=== PATIENT | female | born 1930 | race Caucasian/White ===

== ENCOUNTER 2018-11-04 13:29 | Inpatient (IN) | payer MEDICARE ==
[2018-11-04 14:28] LABS: #Lymphocytes 0.3 thou/uL (1.20-3.40); #Monocytes 0.6 thou/uL (0.11-0.59); #Neutrophils 10.6 thou/uL (1.40-6.50); %Basophils 0.4 % (0.0-1.0); %Eosinophils 0.2 % (0.0-10.0); %Lymphocytes 2.9 % (21.0-51.0); %Monocytes 5.2 % (0.0-10.0); %Neutrophils 91.3 % (42.0-75.0); Hemoglobin 15.8 g/dL (12.0-16.0); Mean Corpuscular HGB CONC 32.4 g/dL (32.0-36.0); Mean Corpuscular Hemoglobin 28.8 pg (27.0-31.0); Mean Corpuscular Volume 88.9 fL (78.0-98.0); Mean Platelet Volume 8.1 fL (7.4-10.4); Platelet Count 212 thou/uL (130-400); RBC Distribution Width 12.7 % (11.5-14.5); Red Blood Cell (RBC) Count 5.46 mill/uL (4.20-5.40); White Blood Cell (WBC) Count 11.6 thou/uL (4.8-10.8)
[2018-11-04 14:50] LABS: ALT (SGPT) 12 U/L (8-55); AST (SGOT) 18 U/L (5-34); Albumin 4.1 g/dL (3.4-4.8); Alkaline Phosphatase 107 U/L (40-150); Anion Gap 15 mmol/L (10-20); BUN (Urea Nitrogen) 12 mg/dL (9.8-20.1); Bilirubin, Total 0.8 mg/dL (0.2-1.2); Calc. Creatinine Clearance 0 mL/min (70-130); Calcium 8.8 mg/dL (7.8-10.44); Carbon Dioxide 23 mmol/L (23-31); Chloride 105 mmol/L (98-107); Estimated GFR-MDRD 66; Globulin 3.4 g/dL (2.4-3.5); Glucose 128 mg/dL (83-110); Potassium 3.8 mmol/L (3.5-5.1); Protein, Total 7.5 g/dL (6.0-8.3); Sodium 139 mmol/L (136-145)
[2018-11-04 15:08] LABS: Bilirubin Negative (Negative); Blood, Urine Negative (Negative); Clarity Clear (Clear); Glucose, Urine (Dipstick) Normal (Negative); Leukocyte Negative Leu/uL (Negative); Nitrite Negative (Negative); Protein, Urine (Dipstick) Negative (Neg-Trace); Urobilinogen Normal mg/dL (Less than 2)
[2018-11-04] MEDS ORDERED: Acetaminophen 500 MG TAB ONE (18:01)
[2018-11-04 18:17] LABS: Lactic Acid 2.2 mmol/L (0.5-2.2)
--- NOTE | 2018-11-04 18:52 | PDOC.FPRHP ---
- History of Present Illness Chief Complaint: Diarrhea History of Present Illness: The patient is a pleasant 88 y/o female with a history of HTN and HLD who presents to the ED with her daughter following two episodes of non-bloody diarrhea earlier this morning. The patient believes that her current state is a result of some clam chowder that she had at [facility] several days prior. She denies sick contacts, recent travel, recent hospitalizations, and recent antibiotic usage. She also denies any worrisome symptoms such as syncope , traumatic falls, chest pain, cough, shortness of breath, N/V, abdominal pain, fever and chills. ED Course: The patient was given a 2L bolus of NS and Meropenem 2 g. - Allergies/Adverse Reactions Allergies Allergy/AdvReac Type Severity Reaction Status Date / Time codeine Allergy Verified 11/04/18 20:05 Sulfa (Sulfonamide Allergy Verified 11/04/18 20:05 Antibiotics) - Home Medications Medication Instructions Recorded Confirmed Type Aspirin [Adult Aspirin Regimen] 1 tab PO DAILY 11/04/18 11/04/18 History Calcium Carb/Vitamin D3/Vit K1 1 each PO BID 11/04/18 11/04/18 History [Viactiv 650 mg-12.5 Mcg Chew] Lisinopril [Zestril] 1 tab PO BID 11/04/18 11/04/18 History Metoprolol Tartrate 0.5 tab PO DAILY 11/04/18 11/04/18 History Mirtazapine [Remeron] 15 mg PO HS 11/04/18 11/04/18 History amLODIPine Besylate [Norvasc] 1 tab PO HS 11/04/18 11/04/18 History traZODone HCl [Trazodone HCl] 0.5 tab PO HS 11/04/18 11/04/18 History - History PMHx: HTN, HLD, Anxiety / Depression PSHx: None FHx: Did Not Obtain Social: Denies x3. The patient lives alone at [facility]. - Review of Systems General: denies: fever/chills, weight/appetite/sleep changes, fatigue Eyes: denies: vision changes ENT: denies: rhinorrhea Respiratory: denies: cough, shortness of breath Cardiovascular: denies: chest pain Gastrointestinal: reports: diarrhea. denies: nausea, vomiting, abdominal pain, GI bleeding Genitourinary: reports: discharge (The patient was told by her OBGYN her pessary can cause benign vaginal discharge from time to time.). denies: dysuria Skin: denies: rashes, lesions, jaundice Neurological: denies: syncope, weakness Psychological: reports: anxiety, depression - Vital signs BP: [164/102] HR: [111] RR: [17] Tmax: [100.6 - Rectal] Pox: [94]% on [Room] Wt: [58 kg] - Physical Exam Constitutional: NAD, awake, alert and oriented, well developed HEENT: normocephalic and atraumatic, conjunctiva clear, no scleral icterus, grossly normal vision, grossly normal hearing, good dention Neck: supple, FROM, no LAD, no JVD Chest: no-tender to palpation, no lesions Heart: RRR, normal S1/S2, no murmurs/rubs/gallops, pulses present, no edema Lungs: CTAB, no respiratory distress, good air movement, no rales/rhonchi, no wheezing, no retractions Abdomen: soft, non-tender, bowel sounds present, no masses/distention Musculoskeletal: normal structure, normal tone, ROM grossly normal Neurological: no focal deficit Skin: no rash/lesions -Skin: Cap Refill > 2 Seconds Heme/Lymphatic: no unusual bruising or bleeding, no petechia, no LAD Psychiatric: normal mood and affect, good judgment and insight, intact recent and remote memory FMR H&P: Results - Labs Result Diagrams: 11/04/18 14:18 11/04/18 14:18 Lab results: WBC 11.6 thou/uL (4.8-10.8) H 11/04/18 14:18 Hgb 15.8 g/dL (12.0-16.0) 11/04/18 14:18 Hct 48.6 % (36.0-47.0) H 11/04/18 14:18 MCV 88.9 fL (78.0-98.0) 11/04/18 14:18 Plt Count 212 thou/uL (130-400) 11/04/18 14:18 Neutrophils % 91.3 % (42.0-75.0) H 11/04/18 14:18 Sodium 139 mmol/L (136-145) 11/04/18 14:18 Potassium 3.8 mmol/L (3.5-5.1) 11/04/18 14:18 Chloride 105 mmol/L (98-107) 11/04/18 14:18 Carbon Dioxide 23 mmol/L (23-31) 11/04/18 14:18 BUN 12 mg/dL (9.8-20.1) 11/04/18 14:18 Creatinine 0.82 mg/dL (0.6-1.1) 11/04/18 14:18 Glucose 128 mg/dL (83-110) H 11/04/18 14:18 Lactic Acid 2.2 mmol/L (0.5-2.2) 11/04/18 17:53 Calcium 8.8 mg/dL (7.8-10.44) 11/04/18 14:18 Total Bilirubin 0.8 mg/dL (0.2-1.2) 11/04/18 14:18 AST 18 U/L (5-34) 11/04/18 14:18 ALT 12 U/L (8-55) 11/04/18 14:18 Alkaline Phosphatase 107 U/L (40-150) 11/04/18 14:18 Serum Total Protein 7.5 g/dL (6.0-8.3) 11/04/18 14:18 Albumin 4.1 g/dL (3.4-4.8) 11/04/18 14:18 Urine Ketones Negative mg/dL (Negative) 11/04/18 14:47 Urine Blood Negative (Negative) 11/04/18 14:47 Urine Nitrite Negative (Negative) 11/04/18 14:47 Ur Leukocyte Esterase Negative Diana/uL (Negative) 11/04/18 14:47 - EKG Interpretation EKG: Sinus Tachycardia FMR H&P: A/P - Problem List (1) Diarrhea with dehydration Current Visit: Yes Status: Acute Code(s): R19.7 - DIARRHEA, UNSPECIFIED (2) HTN (hypertension) Current Visit: Yes Status: Acute Code(s): I10 - ESSENTIAL (PRIMARY) HYPERTENSION (3) Hyperlipemia Current Visit: Yes Status: Acute Code(s): E78.5 - HYPERLIPIDEMIA, UNSPECIFIED - Plan 1. Diarrhea with Dehydration -Patient admitted to 2 episodes of water diarrhea with decreased PO intake -shelter resident (Jannette) -Dry mucous membranes and delayed capillary refill on PE -Lactic Acid: 2.2 (H) -Stool Studies: Pending -No recent hospitalizations or antibiotic use - C. diff. infection unlikely -Benign HPI and PE likely indicate viral enteritis -2L NS bolus and Meropenem 2 g administered in ED -Continue fluid resuscitation and monitor vital signs and electrolytes -Diet: Clear Liquids -Activity: Ad Annel 2. HTN -Patient is unsure of baseline BP, measured 164/102 in ED -Continue home medication regimen 3. HLD -Continue home medication regimen Dispo: Admit to Medical Floor for observation. Continue fluid resuscitation while monitoring vital signs and electrolytes. Clear liquid diet. Patient will likely DC in AM if symptoms resolve. FMR H&P: Upper Level - Pertinent history Pleasant 88 yo female presents for evaluation of acute onset diarrhea for one day. She reports multiple episodes of diarrhea and limited to no PO intake. She denies bloody stools, vomiting, lightheadedness, or other acute complaints. Please see advertising intern note above for further information. Physical Exam: General: Female appears stated age. NAD. HEENT: Dry mucous membranes. CV: tachycardic rate, regular rhythm, no murmurs Respiratory: CTA, no wheezing Extremities: no edema present. Moves all four equally. Abdomen: Soft-non tender, normoactive BS. Psych: A&O x3 Neuro: No focal deficits - Plan Date/Time: 11/04/18 114 I, Alexandro So MD, have evaluated this patient and agree with findings/ plan as outlined by advertising intern resident. Pertinent changes/additions are listed here. Enteritis - Strong suspicion for viral infection - IVF - Will hold on any further antibiotics - Stool cultures ordered in ED - Clear liquid diet and advance as tolerated Dehydration - IVF as above - Will give additional 500 ml bolus - s/p 1L Bolus in ED HTN - Continue home meds HLD - Continue home meds PCP: Dr. CRYSTAL FREITAS CODE STATUS: FULL CODE Disposition: Stable, will admit for observation overnight
[2018-11-04] MEDS ORDERED: Enoxaparin Sodium 40 MG/0.4 ML SYRINGE SC SCH (19:57)
[2018-11-04] MEDS ORDERED: Loperamide HCl 2 MG CAP PO PRN (19:57)
[2018-11-04] MEDS: Sodium Chloride 0.9% 1,000 ML IV SCH (20:15)
[2018-11-04 20:22] VITALS: BMI 27.3
[2018-11-04 20:36] LABS: #Basophils 0.1 thou/uL (0.0-0.2); #Lymphocytes 0.4 thou/uL (1.20-3.40); #Monocytes 0.5 thou/uL (0.11-0.59); #Neutrophils 8.4 thou/uL (1.40-6.50); %Basophils 0.6 % (0.0-1.0); %Eosinophils 0.2 % (0.0-10.0); %Lymphocytes 4.2 % (21.0-51.0); %Monocytes 4.9 % (0.0-10.0); %Neutrophils 90.2 % (42.0-75.0); Hemoglobin 14.9 g/dL (12.0-16.0); Mean Corpuscular HGB CONC 32.9 g/dL (32.0-36.0); Mean Corpuscular Hemoglobin 29.5 pg (27.0-31.0); Mean Corpuscular Volume 89.9 fL (78.0-98.0); Platelet Count 216 thou/uL (130-400); RBC Distribution Width 12.8 % (11.5-14.5); Red Blood Cell (RBC) Count 5.05 mill/uL (4.20-5.40); White Blood Cell (WBC) Count 9.4 thou/uL (4.8-10.8)
[2018-11-04 20:49] LABS: Anion Gap 13 mmol/L (10-20); BUN (Urea Nitrogen) 8 mg/dL (9.8-20.1); Calc. Creatinine Clearance 51 mL/min (70-130); Calcium 8.1 mg/dL (7.8-10.44); Carbon Dioxide 19 mmol/L (23-31); Chloride 110 mmol/L (98-107); Estimated GFR-MDRD 80; Glucose 134 mg/dL (83-110); Potassium 3.4 mmol/L (3.5-5.1); Sodium 139 mmol/L (136-145)
[2018-11-04] MEDS: traZODone HCl 50 MG TAB PO SCH (21:00)
[2018-11-04] MEDS ORDERED: Amlodipine 5 MG TAB PO SCH (21:00)
[2018-11-04] MEDS: Lisinopril 10 MG TAB PO SCH (21:01)
[2018-11-04] MEDS: Mirtazapine 15 MG TAB PO SCH (21:01)
[2018-11-04] MEDS ORDERED: Acetaminophen 325 MG TAB PO PRN (23:05)
[2018-11-05] MEDS: Sodium Chloride 0.9% 1,000 ML IV SCH ×3 (04:35→22:45)
--- NOTE | 2018-11-05 05:15 | PDOC.FM ---
- Subjective Subjective: 4 BM overnight. They were watery and loose. She has some nausea, but no vomiting. - Objective MAR Reviewed: Yes Vital Signs & Weight: Vital Signs (12 hours) Temp Pulse Resp BP BP Pulse Ox 11/05/18 00:00 98.5 F 90 18 136/79 91 L 11/04/18 21:06 98 F 106 H 18 160/92 H 95 11/04/18 21:01 171/90 H 11/04/18 21:00 112 H 171/90 H 11/04/18 20:20 97.5 F L 112 H 18 171/89 H 94 L 11/04/18 20:00 98 F 108 H 18 160/92 H 95 Weight Weight 57.289 kg I&O: 11/03/18 11/04/18 11/05/18 06:59 06:59 06:59 Intake Total 980 Balance 980 Result Diagrams: 11/05/18 05:24 11/05/18 05:24 Phys Exam - Physical Examination Constitutional: NAD HEENT: PERRLA dry mucus membranes Neck: supple Respiratory: clear to auscultation bilateral Cardiovascular: RRR, no significant murmur, no rub Gastrointestinal: soft, non-tender, positive bowel sounds distended Musculoskeletal: no edema Neurological: non-focal, moves all 4 limbs Lymphatic: no nodes Psychiatric: normal affect Skin: no rash, cap refill <2 seconds Dx/Plan (1) Diarrhea with dehydration Code(s): R19.7 - DIARRHEA, UNSPECIFIED Status: Acute (2) HTN (hypertension) Code(s): I10 - ESSENTIAL (PRIMARY) HYPERTENSION Status: Chronic (3) Hyperlipemia Code(s): E78.5 - HYPERLIPIDEMIA, UNSPECIFIED Status: Chronic 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 Diarrhea with Dehydration -Patient admitted to 2 episodes of water diarrhea with decreased PO intake. Dry mucous membranes and delayed capillary refill on PE -snf resident (Jannette) -Lactic Acid: 2.2 (H) -Stool Studies: Negative except Lactoferrin -No recent hospitalizations or antibiotic use - C. diff. infection unlikely -Benign HPI and PE likely indicate viral enteritis -2L NS bolus and Meropenem 2 g administered in ED -Continue fluid resuscitation and monitor vital signs and electrolytes -4 Water BM this morning. Nausea without vomiting. -Zofran started 2. Hypokalemia -2.9 this am. Being replaced currently, will recheck later. 3. HTN -Patient is unsure of baseline BP, measured 164/102 in ED -Continue home medications: Amlo 2.5, ASA 81, Lisinopril 10 BID, Metoprolol 12.5 -Increased amlo to BID due to elevated BP 4. HLD -Currently not taking medication. Code Status: Full Lines: Peripheral Diet: Regular Activity: Ad Annel Dispo: Will watch overnight for resolving diarrhea and continue fluids to prevent dehydration.
[2018-11-05 06:01] LABS: #Lymphocytes 0.5 thou/uL (1.20-3.40); #Monocytes 0.5 thou/uL (0.11-0.59); %Eosinophils 0.4 % (0.0-10.0); %Lymphocytes 6.6 % (21.0-51.0); %Monocytes 7.3 % (0.0-10.0); %Neutrophils 85.7 % (42.0-75.0); Hemoglobin 14.9 g/dL (12.0-16.0); Mean Corpuscular HGB CONC 32.5 g/dL (32.0-36.0); Mean Corpuscular Hemoglobin 29.3 pg (27.0-31.0); Mean Platelet Volume 8.2 fL (7.4-10.4); Platelet Count 202 thou/uL (130-400); RBC Distribution Width 12.9 % (11.5-14.5); Red Blood Cell (RBC) Count 5.07 mill/uL (4.20-5.40)
[2018-11-05 06:22] LABS: ALT (SGPT) 11 U/L (8-55); AST (SGOT) 20 U/L (5-34); Albumin 3.9 g/dL (3.4-4.8); Alkaline Phosphatase 97 U/L (40-150); Anion Gap 12 mmol/L (10-20); BUN (Urea Nitrogen) 6 mg/dL (9.8-20.1); Bilirubin, Total 0.8 mg/dL (0.2-1.2); Calc. Creatinine Clearance 52 mL/min (70-130); Calcium 7.9 mg/dL (7.8-10.44); Carbon Dioxide 20 mmol/L (23-31); Chloride 107 mmol/L (98-107); Estimated GFR-MDRD 83; Globulin 3.2 g/dL (2.4-3.5); Glucose 122 mg/dL (83-110); Protein, Total 7.1 g/dL (6.0-8.3); Sodium 136 mmol/L (136-145)
[2018-11-05 06:26] LABS: Potassium 2.9 mmol/L (3.5-5.1)
[2018-11-05] MEDS ORDERED: Potassium Chloride 20 MEQ TAB PO SCH (06:30)
[2018-11-05] MEDS ORDERED: Ondansetron ODT 8 MG TAB SL PRN (07:19)
[2018-11-05] MEDS: Ondansetron ODT 4 MG TAB PO PRN ×2 (07:49→16:40)
[2018-11-05] MEDS: Lisinopril 10 MG TAB PO SCH ×2 (07:53→20:58)
[2018-11-05] MEDS: Metoprolol Tartrate 25 MG TAB PO SCH (07:54)
[2018-11-05] MEDS: Aspirin 81 mg Enteric Coated Tablet PO SCH (07:54)
[2018-11-05] MEDS: Amlodipine 5 MG TAB PO SCH ×2 (09:16→20:59)
--- NOTE | 2018-11-05 11:17 | HP ---
I have examined the patient. I have discussed the case with Dr. Dilshad Goel, and agree with his assessment and plan. HISTORY OF PRESENT ILLNESS: Briefly, Ms. Quintero is a very pleasant 88-year-old patient, who presented with two episodes of nonbloody diarrhea early this morning. She thinks she had some clam chowder at [facility] several days prior to this. She was also noted to have a low-grade temperature and was brought to the ER. PHYSICAL EXAMINATION: GENERAL: On exam, she is awake, alert, and very pleasant, in no distress. She does state; however, she has had four bowel movements in the last several hours. VITAL SIGNS: Her blood pressure is 160/100. Her heart rate is 100, respirations 17, T-max was 100.6, and her room air pulse ox is 94%. EAR, NOSE, AND THROAT: Mucous membranes moist. NECK: Supple. CARDIAC: Heart rhythm regular. S4 gallop. No murmur. LUNGS: Clear. No rales or wheezes. ABDOMEN: Minimally tender. No guarding or rebound. Slightly distended, but overall benign. NEUROLOGIC: No focal deficits. LABORATORY DATA: White count initially was 11,600 and it is now 9400, hemoglobin 15.8, and hematocrit 48.6 with an MCV of 88.9. Chemistries initially sodium 139, potassium 3.8, chloride 105, bicarb 23, BUN 12, and creatinine 0.82. Lactic acid was initially elevated at 3, it is now 2.2. ASSESSMENT: Enterocolitis. PLAN: Continue fluids. We are still awaiting the results of some stool studies, which so far are negative. This is likely a viral etiology as her procalcitonin is low at 0.1. She does not appear dehydrated and we will advance her diet. Job ID: [id number]
[2018-11-05] MEDS ORDERED: Loperamide HCl 2 MG CAP PO PRN (11:19)
[2018-11-05] MEDS ORDERED: Loperamide HCl 2 MG CAP PO SCH (11:30)
[2018-11-05] MEDS: Mirtazapine 15 MG TAB PO SCH (20:58)
[2018-11-05] MEDS: traZODone HCl 50 MG TAB PO SCH (20:58)
--- NOTE | 2018-11-06 06:29 | PDOC.FM ---
- Subjective Subjective: Feeling well this am. States only had 1 BM since taking the loperamide yesterday. Denies any abdominal pain or N/V. Has been drinking liquids without difficulty. - Objective Vital Signs & Weight: Vital Signs (12 hours) Temp Pulse Resp BP BP Pulse Ox 11/05/18 20:59 86 134/84 11/05/18 20:58 134/84 11/05/18 20:00 98.7 F 86 16 134/84 95 Weight Weight 57.289 kg I&O: 11/04/18 11/05/18 11/06/18 06:59 06:59 06:59 Intake Total 980 Balance 980 Result Diagrams: 11/05/18 05:24 11/06/18 07:15 Phys Exam - Physical Examination Constitutional: NAD HEENT: PERRLA, moist MMs Neck: no JVD, full ROM Respiratory: no wheezing, no rales, no rhonchi, clear to auscultation bilateral Cardiovascular: RRR, no significant murmur, no rub Gastrointestinal: soft, non-tender, no distention, positive bowel sounds Musculoskeletal: no edema, pulses present Neurological: non-focal, moves all 4 limbs Psychiatric: normal affect, A&O x 3 Skin: no rash, cap refill <2 seconds Dx/Plan (1) Diarrhea with dehydration Code(s): R19.7 - DIARRHEA, UNSPECIFIED Status: Acute (2) Hypokalemia Code(s): E87.6 - HYPOKALEMIA Status: Acute (3) HTN (hypertension) Code(s): I10 - ESSENTIAL (PRIMARY) HYPERTENSION Status: Chronic (4) Hyperlipemia Code(s): E78.5 - HYPERLIPIDEMIA, UNSPECIFIED Status: Chronic 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 Dry mucous membranes and delayed capillary refill on PE -jail resident (Jannette) -Stool Studies: Negative except Lactoferrin -No recent hospitalizations or antibiotic use - C. diff. infection unlikely -2L NS bolus and Meropenem 2 g administered in ED -Continue fluid resuscitation and monitor vital signs and electrolytes -Leukocytosis resolved -4 Water BM yesterday, nausea without vomiting - Zofran and loperamide started -1 BM since loperamide -Advancing to regular diet today as tolerated Hypokalemia -2.9 yesterday, replaced with 40meq; today was 3.4, repeating replacement HTN -Patient is unsure of baseline BP, measured 164/102 in ED -Continue home medications: Amlodipine 2.5, ASA 81, Lisinopril 10 BID, Metoprolol 12.5 -Increased amlodipine to BID yesterday; BP 134/84 this am HLD -Currently not taking medication. Code Status: Full Lines: Peripheral Diet: Regular Activity: Ad Annel Dispo: Will see how pt tolerates regular diet today, if she does well she may be able to go home later this afternoon following final potassium replacement. Addendum - Attending - Attending Attestation Date/Time: 11/06/182000 I personally evaluated the patient and discussed the management with Dr. Hadley at 0935 today. I agree with the History, Examination, Assessment and Plan documented above with any addition or exceptions noted below. Viral gastroenteritis- improving. stool studies negative for bacterial cause. Tolerating diet well. stable for d/c home. HypoK- replace this am. Should resolve since diarrhea improving.
[2018-11-06 07:56] LABS: Anion Gap 11 mmol/L (10-20); BUN (Urea Nitrogen) 6 mg/dL (9.8-20.1); Calc. Creatinine Clearance 50 mL/min (70-130); Calcium 7.6 mg/dL (7.8-10.44); Carbon Dioxide 21 mmol/L (23-31); Chloride 111 mmol/L (98-107); Estimated GFR-MDRD 79; Glucose 100 mg/dL (83-110); Potassium 3.1 mmol/L (3.5-5.1); Sodium 140 mmol/L (136-145)
[2018-11-06] MEDS: Amlodipine 5 MG TAB PO SCH (07:57)
[2018-11-06] MEDS: Metoprolol Tartrate 25 MG TAB PO SCH (08:00)
[2018-11-06] MEDS: Aspirin 81 mg Enteric Coated Tablet PO SCH (08:01)
[2018-11-06] MEDS: Lisinopril 10 MG TAB PO SCH (08:01)
[2018-11-06] MEDS: Sodium Chloride 0.9% 1,000 ML IV SCH (08:02)
[2018-11-06] MEDS ORDERED: Potassium Chloride 20 MEQ TAB PO SCH (08:30)
[2018-11-06] MEDS ORDERED: Simethicone Chewable 80 MG TAB PO PRN (14:03)
[2018-11-06 16:48] VITALS: BP 144/84; TEMP 97.5
--- NOTE | 2018-11-07 04:28 | DIS ---
DATE OF ADMISSION: 11/05/2018 DATE OF DISCHARGE: 11/06/2018 RESIDENT: Francisco Hadley DO ADMITTING ATTENDING: Ronan Redd MD DISCHARGE ATTENDING: Vilma Conway MD CONSULTS: None. PROCEDURES: None. PRIMARY DIAGNOSIS: Diarrhea with dehydration, hypertension, hyperlipidemia. DISCHARGE MEDICATIONS: 1. Amlodipine 2.5 mg at bedtime. 2. Aspirin 81 mg daily. 3. Vitamin D3 one tab daily. 4. Zestril 10 mg b.i.d. 5. Metoprolol tartrate 25 mg half tab daily. 6. Mirtazapine 15 mg at bedtime. 7. Trazodone 50 mg half tab at bedtime. HISTORY OF PRESENT ILLNESS AND HOSPITAL COURSE: The patient is an 88-year-old female, who presents to the ED with her daughter following two episodes of nonbloody diarrhea earlier this morning. The patient noted that the diarrhea symptoms continued to last throughout the day, which concerned her. She felt this may have been due to something she ate. She denied any sick contacts, abdominal pain, weakness, near syncope, or other concerning symptoms. The patient had an elevated lactic acid of 3.0 in the ER and borderline white blood cell count, and was subsequently admitted. Over the next day, the patient was fluid resuscitated and further assessed for infectious causes of her diarrhea. Stool studies all resulted normal aside from a positive fecal lactoferrin. After some fluid resuscitation , the patient's lactic acid and leukocytosis resolved. She did have a borderline low potassium that worsened with further fluid resuscitation that was subsequently replaced appropriately. On the day of her discharge, the patient tolerated a full diet without any difficulty and noted a resolution in her watery diarrhea following loperamide treatment. She denied any abdominal pain, fever, or chills. She was instructed on return precautions and voiced understanding. The patient's daughter subsequently brought the patient back to her residence at [facility]. DISPOSITION: Stable. DISCHARGE INSTRUCTIONS: 1. Location: [facility]. 2. Diet: As tolerated, no restrictions. 3. Activity: No restrictions. 4. Followup: PCP, Dr. Dedra Rivera within 7 days. Job ID: [id number] [facility]
== END 2018-11-06 16:54 | DRG 641 ==
LOC: ERS 13:29 → T4-B 17:01 → INTOOBSV 17:01 → OBSVTOIN 11-05 20:46
PROVIDERS: ADMIT Family Medicine; ATTEND Family Medicine
DX: E86.0 Dehydration (principal); A08.4 Viral intestinal infection, unspecified; I10 Essential (primary) hypertension; F41.9 Anxiety disorder, unspecified; E78.5 Hyperlipidemia, unspecified; F32.9 Major depressive disorder, single episode, unspecified; E87.6 Hypokalemia; Z88.5 Allergy status to narcotic agent; Z88.2 Allergy status to sulfonamides; Z79.899 Other long term (current) drug therapy; Z79.82 Long term (current) use of aspirin
CPT/HCPCS: 36415; 51701; 80048; 80053; 81003; 83605; 83630; 84145; 85025; 87045; 87046; 87324; 87449; 87899; 93005; 96360; 96361; A4353; Q0162

== ENCOUNTER 2019-03-02 15:30 | Emergency (ER) | payer MEDICARE ==
--- NOTE | 2019-03-02 17:20 | RAD ---
RADIOGRAPH LEFT KNEE 4VIEWS: DATE: 03/02/2019 HISTORY: 89-year-old female with left knee pain FINDINGS: There is no evidence of fracture or dislocation. There is no evidence of periostitis, permeative lesi on, osteolytic lesion, or osteoblastic lesion. The joint spaces are maintained without erosions or significant osteophytes. No joint effusion is identified. Diffuse osteopenia. IMPRESSION: 1. Osteopenia. 2. Otherwise normal
--- NOTE | 2019-03-02 17:28 | ULT ---
ULTRASOUND DOPPLER DUPLEX VENOUS LEFT LOWER EXTREMITY: DATE: 03/02/2019 HISTORY: Left lower extremity pain in 89-year-old female TECHNIQUE: Grayscale, color-flow, and spectral analysis, of major veins of left lower extremity. FINDINGS: There is demonstration of blood flow with normal compressibility, of the left common femoral, profund a femoral, greater saphenous, femoral, popliteal, and posterior tibial, veins. IMPRESSION: Negative. No deep venous thrombosis of left lower extremity.
[2019-03-02] MEDS ORDERED: Acetaminophen 500 MG TAB ONE (19:15)
[2019-03-02] MEDS ORDERED: Ibuprofen 200 MG TAB ONE (19:15)
== END 2019-03-02 19:44 | disposition home or self-care (01) ==
LOC: ERS 15:30
DX: M25.562 Pain in left knee (principal); E78.5 Hyperlipidemia, unspecified; I10 Essential (primary) hypertension; F41.9 Anxiety disorder, unspecified; F32.9 Major depressive disorder, single episode, unspecified; Z79.899 Other long term (current) drug therapy
CPT/HCPCS: 93005

== ENCOUNTER 2019-03-08 03:18 | Emergency (ER) | payer MEDICARE ==
[2019-03-08 03:54] LABS: #Eosinphils 0.2 thou/uL (0.0-0.7); #Lymphocytes 1.3 thou/uL (1.20-3.40); #Monocytes 0.5 thou/uL (0.11-0.59); #Neutrophils 3.7 thou/uL (1.40-6.50); %Basophils 0.5 % (0.0-1.0); %Eosinophils 3.7 % (0.0-10.0); %Lymphocytes 22.8 % (21.0-51.0); %Monocytes 8.8 % (0.0-10.0); %Neutrophils 64.1 % (42.0-75.0); Hemoglobin 14.3 g/dL (12.0-16.0); Mean Corpuscular HGB CONC 32.3 g/dL (32.0-36.0); Mean Corpuscular Volume 89.8 fL (78.0-98.0); Mean Platelet Volume 7.8 fL (7.4-10.4); Platelet Count 240 thou/uL (130-400); RBC Distribution Width 12.6 % (11.5-14.5); Red Blood Cell (RBC) Count 4.95 mill/uL (4.20-5.40); White Blood Cell (WBC) Count 5.7 thou/uL (4.8-10.8)
[2019-03-08 04:04] LABS: PTT 25.1 SEC (22.9-36.1); Prothrombin Time 12.8 SEC (12.0-14.7)
[2019-03-08 04:17] LABS: ALT (SGPT) 19 U/L (8-55); AST (SGOT) 28 U/L (5-34); Albumin 4.2 g/dL (3.4-4.8); Alkaline Phosphatase 80 U/L (40-110); Anion Gap 12 mmol/L (10-20); BUN (Urea Nitrogen) 16 mg/dL (9.8-20.1); Bilirubin, Total 0.5 mg/dL (0.2-1.2); Calc. Creatinine Clearance 0 mL/min (70-130); Calcium 9.3 mg/dL (7.8-10.44); Carbon Dioxide 28 mmol/L (23-31); Chloride 102 mmol/L (98-107); Estimated GFR-MDRD 57; Globulin 3.3 g/dL (2.4-3.5); Glucose 119 mg/dL (83-110); Potassium 3.4 mmol/L (3.5-5.1); Protein, Total 7.5 g/dL (6.0-8.3); Sodium 139 mmol/L (136-145)
--- NOTE | 2019-03-08 07:40 | CT ---
PRELIMINARY REPORT/[facility]/EMERGENCY AFTER HOURS PROCEDURE EXAM: CT Abdomen and Pelvis with Intravenous Contrast CLINICAL HISTORY: [id number] TECHNIQUE: Axial computed tomography images of the abdomen and pelvis with intravenous contrast. CONTRAST: With; ISOVUE 370, 70ml COMPARISON: None provided. FINDINGS: LUNG BASES: No basilar airspace consolidation or pleural effusion. LIVER: Unremarkable. GALLBLADDER AND BILE DUCTS: Unremarkable. No calcified stone. No ductal dilation. PANCREAS: Unremarkable. SPLEEN: Unremarkable. ADRENAL GLANDS: Unremarkable. KIDNEYS, URETERS, AND BLADDER: Unremarkable. No hydronephrosis or nephrolithiasis. No ureteral or manan dder calculi. Bladder pessary device. STOMACH AND BOWEL: No obstruction. No wall thickening. No CT evidence of colitis or acute diverticuli tis. Sigmoid diverticulosis coli without diverticulitis APPENDIX: Appendix is normal PERITONEUM: No free fluid. No free air. LYMPH NODES: No lymphadenopathy. REPRODUCTIVE: Calcified uterine leiomyoma. VASCULATURE: No aortic aneurysm. BONES: Degenerative changes affect the spine. ABDOMINAL WALL AND SOFT TISSUES: Unremarkable. IMPRESSION: 1. Calcified uterine leiomyoma. 2. Sigmoid diverticulosis coli without diverticulitis ELECTRONICALLY SIGNED BY: Austin Del Valle M.D. Mar 08, 2019 4:44:52 AM EXPLOSIVES DETONATOR This report is intended for review by the ordering physician only, in accordance of law. If you recei ve this report in error, please call [facility] at [phone]. FINAL REPORT CT ABDOMEN AND PELVIS: DATE: 03/08/2019. COMPARISON: None. HISTORY: Rectal bleeding. FINDINGS: I agree with the preliminary report. Imaged lung bases unremarkable. Small hiatal hernia. No free int raperitoneal air or fluid. There is a calcified uterine fibroid within the left hemipelvis measuring 2.5 cm. The liver, spleen, gallbladder, pancreas, adrenal glands, and kidneys demonstrate no acute findings. There is prominent diverticulosis of the sigmoid colon and descending colon with no evidence for dive rticulitis. There is a small fat-containing umbilical hernia. The appendix appears grossly unremarkable. There is scattered atherosclerotic calcification of the abdominal aorta and its branches. No lymphadenopathy is evident within the abdomen or pelvis. Review of the osseous structures demonstr ates mild multilevel lower lumbar spine facet hypertrophic change. No acute osseous abnormality is noted. IMPRESSION: Prominent colonic diverticulosis without evidence for diverticulitis. Transcribed Date/Time: 03/08/2019 8:26 AM
[2019-03-08] MEDS ORDERED: Iopamidol-370 76% 500 ML 1 ML ONE (14:49)
== END 2019-03-08 05:52 | disposition home or self-care (01) ==
LOC: ERS 03:18
DX: K62.5 Hemorrhage of anus and rectum (principal); E78.5 Hyperlipidemia, unspecified; I10 Essential (primary) hypertension; F41.9 Anxiety disorder, unspecified; F32.9 Major depressive disorder, single episode, unspecified; Z79.899 Other long term (current) drug therapy
CPT/HCPCS: 36415; 74177; 80053; 85025; 85610; 85730; 96360; Q9967

== ENCOUNTER 2019-03-16 14:42 | Outpatient (CLI) | payer MEDICARE ==
--- NOTE | 2019-03-16 15:59 | MRI ---
MRI Lower Ext Jt Lt WO Con History: Mejia's cyst. Arthritic changes. Comparison: Knee radiograph March 02, 2019 Findings: Medial meniscus: Full-thickness radial tear posterior root attachment medial meniscus. Smal l volume scar and granulation tissue partially bridges the 6 mm gap between the root and displaced posterior horn. There is 3 to 4 mm medial gutter extrusion medial meniscal body. Lateral meniscus: Intact The MCL is mildly thickened with adjacent edema. Lateral collateral ligament is intact with proximal thickening. Extensor mechanism: The quadriceps tendon, patella, and patellar tendon are intact. The ACL and PCL are intact. Cartilage: Patellofemoral compartment: Multifocal low-grade chondral fissures of the trochlear groove and latera l trochlea. No marrow reactive changes. Medial compartment: Intact Lateral compartment: Intact Muscles: Muscle bulk is normal for age. Soft tissues: Popliteal cyst with caudal dehiscence with extensive fluid along the medial margin medi al head gastrocnemius. There is adjacent reactive fluid along the medial aspect of the joint on the medial collateral ligament and pelvis answers tendons. There is high-grade tendinosis and interstitial tearing of the semimembranosus. Impression: 1. Popliteal cyst with caudal dehiscence creating an adjacent inflammatory response. 2. Subcortical insufficiency fracture central weightbearing surface medial tibial plateau without art icular surface compression likely sequelae of medial meniscal tear. 3. Full-thickness radial tear posterior root attachment medial meniscus with 3-4 mm medial gutter ext rusion and loss of normal hoop stress. This contributes to the subcortical insufficiency fracture medial tibial plateau given the normal for age cartilage. 4. 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
== END 2019-03-16 14:43 | disposition home or self-care (01) ==
LOC: TBSIIMAG 14:42
PROVIDERS: ATTEND Orthopaedic Surgery
DX: M71.22 Synovial cyst of popliteal space [Baker], left knee (principal); M17.12 Unilateral primary osteoarthritis, left knee; M84.48XA Pathological fracture, other site, initial encounter for fracture; M94.262 Chondromalacia, left knee; S83.242A Other tear of medial meniscus, current injury, left knee, initial encounter

== ENCOUNTER 2019-04-03 13:31 | Emergency (ER) | payer MEDICARE ==
[2019-04-03 14:31] LABS: #Eosinphils 0.1 thou/uL (0.0-0.7); #Lymphocytes 0.8 thou/uL (1.20-3.40); #Monocytes 0.6 thou/uL (0.11-0.59); #Neutrophils 4.7 thou/uL (1.40-6.50); %Basophils 0.6 % (0.0-1.0); %Eosinophils 0.9 % (0.0-10.0); %Lymphocytes 12.4 % (21.0-51.0); %Monocytes 9.4 % (0.0-10.0); %Neutrophils 76.7 % (42.0-75.0); Hemoglobin 14.5 g/dL (12.0-16.0); Mean Corpuscular HGB CONC 34.1 g/dL (32.0-36.0); Mean Corpuscular Hemoglobin 30.6 pg (27.0-31.0); Mean Corpuscular Volume 89.7 fL (78.0-98.0); Platelet Count 248 thou/uL (130-400); RBC Distribution Width 12.4 % (11.5-14.5); Red Blood Cell (RBC) Count 4.76 mill/uL (4.20-5.40); White Blood Cell (WBC) Count 6.1 thou/uL (4.8-10.8)
[2019-04-03 14:38] LABS: PTT 27.8 SEC (22.9-36.1); Prothrombin Time 13.5 SEC (12.0-14.7)
[2019-04-03 14:52] LABS: Anion Gap 14 mmol/L (10-20); BUN (Urea Nitrogen) 10 mg/dL (9.8-20.1); Calc. Creatinine Clearance 0 mL/min (70-130); Calcium 9.1 mg/dL (7.8-10.44); Carbon Dioxide 25 mmol/L (23-31); Chloride 103 mmol/L (98-107); Estimated GFR-MDRD 69; Glucose 138 mg/dL (83-110); Potassium 3.6 mmol/L (3.5-5.1); Sodium 138 mmol/L (136-145)
== END 2019-04-03 16:35 | disposition home or self-care (01) ==
LOC: ERS 13:31
DX: I82.4Z2 Acute embolism and thrombosis of unspecified deep veins of left distal lower extremity (principal); F32.9 Major depressive disorder, single episode, unspecified; E78.5 Hyperlipidemia, unspecified; I10 Essential (primary) hypertension; F41.9 Anxiety disorder, unspecified; Z79.899 Other long term (current) drug therapy
CPT/HCPCS: 36415; 80048; 85025; 85610; 85730; 99284